=== PATIENT | female | born 1980 | race Caucasian/White ===

== ENCOUNTER 2017-11-23 09:08 | Emergency (ER) | payer MEDICAID ==
[2017-11-23 09:14] VITALS: BP 150/87
--- NOTE | 2017-11-23 09:21 | ER Document Report ---
ED Medical Screen (RME) - General Chief Complaint: Vag Bleeding, +preg <12wks Stated Complaint: VAGINAL BLEEDING Time Seen by Provider: 11/23/17 09:17 Notes: Patient is a 37-year-old female, presents with vaginal bleeding and passing the fetus this morning. She was 8 weeks . She was treated for subchorionic bleed with RhoGam 2 weeks ago because her blood type is B-. Feeling slightly lightheaded and still bleeding, but this decreased. Pt is on vacation. PE: RRR. Lungs CTAb. No acute distress. I have greeted and performed a rapid initial assessment of this patient. A comprehensive ED assessment and evaluation of the patient, analysis of test results and completion of the medical decision making process will be conducted by additional ED providers. TRAVEL OUTSIDE OF THE [place] IN LAST 30 DAYS: No - Related Data Allergies/Adverse Reactions: naloxone Allergy (Verified 11/23/17 09:19) Past Medical History - General Last Menstrual Period: 09/08/2017 - Social History Chew tobacco use (# tins/day): No Frequency of alcohol use: None Drug Abuse: Marijuana, Other Renal/ Medical History: Denies: Hx Peritoneal Dialysis Physical Exam - Vital signs Vitals: Temp Pulse Resp BP Pulse Ox 98.3 F 83 20 150/87 H 98 11/23/17 09:13 11/23/17 09:13 11/23/17 09:13 11/23/17 09:13 11/23/17 09:13 Course - Vital Signs Vital signs: Temp Pulse Resp BP Pulse Ox 98.3 F 83 20 150/87 H 98 11/23/17 09:13 11/23/17 09:13 11/23/17 09:13 11/23/17 09:13 11/23/17 09:13
--- NOTE | 2017-11-23 09:33 | ER Document Report ---
ED General - General Chief Complaint: Vag Bleeding, +preg <12wks Stated Complaint: VAGINAL BLEEDING Time Seen by Provider: 11/23/17 09:17 TRAVEL OUTSIDE OF THE [place] IN LAST 30 DAYS: No - HPI Patient complains to provider of: Vaginal bleeding Notes: 37-year-old female presents with what she thinks is completed miscarriage. Patient believes 8 or 9 weeks scheduled to see her OB/ PRODUCT DELIVERY SPECIALIST on Tuesday. Presents of the passing clots this morning appears to be products of conception. Patient initially had some abdominal pain but is now resolved. Pain was 8/10 sharp in nature without radiation nothing made the pain better or worse. Patient at this time is symptom-free. - Related Data Allergies/Adverse Reactions: naloxone Allergy (Verified 11/23/17 09:19) Past Medical History - General Last Menstrual Period: 09/08/2017 - Social History Smoking Status: Current Every Day Smoker Chew tobacco use (# tins/day): No Frequency of alcohol use: None Drug Abuse: Marijuana, Other Family History: None Patient has suicidal ideation: No Patient has homicidal ideation: No Renal/ Medical History: Denies: Hx Peritoneal Dialysis Review of Systems - Review of Systems Notes: REVIEW OF SYSTEMS: CONSTITUTIONAL: -fevers, -chills EENT: -eye pain, -difficulty swallowing, -nasal congestion CARDIOVASCULAR: -chest pain, -syncope. RESPIRATORY: -cough, -SOB GASTROINTESTINAL: -abdominal pain, -nausea, -vomiting, -diarrhea GENITOURINARY: -dysuria, -hematuria MUSCULOSKELETAL: -back pain, -neck pain SKIN: -rash or skin lesions. HEMATOLOGIC: -easy bruising or bleeding. LYMPHATIC: -swollen, enlarged glands. NEUROLOGICAL: -altered mental status or loss of consciousness, -headache, - neurologic symptoms PSYCHIATRIC: -anxiety, -depression. ALL OTHER SYSTEMS REVIEWED AND NEGATIVE. Physical Exam - Vital signs Vitals: Temp Pulse Resp BP Pulse Ox 98.3 F 83 20 150/87 H 98 11/23/17 09:13 11/23/17 09:13 11/23/17 09:13 11/23/17 09:13 11/23/17 09:13 - Notes Notes: PHYSICAL EXAMINATION: GENERAL: Well-appearing, well-nourished and in no acute distress. HEAD: Atraumatic, normocephalic. EYES: Pupils equal round and reactive to light, extraocular movements intact, sclera anicteric, conjunctiva are normal. ENT: nares patent, oropharynx clear without exudates. Moist mucous membranes. NECK: Normal range of motion, supple without lymphadenopathy LUNGS: Breath sounds clear to auscultation bilaterally and equal. No wheezes rales or rhonchi. HEART: Regular rate and rhythm without murmurs ABDOMEN: Soft, nontender, normoactive bowel sounds. No guarding, no rebound. No masses appreciated. EXTREMITIES: Normal range of motion, no pitting or edema. No cyanosis. NEUROLOGICAL: Cranial nerves grossly intact. Normal speech, normal gait. Normal sensory and motor exams. PSYCH: Normal mood, normal affect. SKIN: Warm, Dry, normal turgor, no rashes or lesions noted. Course - Re-evaluation Re-evalutation: 11/23/17 09:40 Unfortunate young female presents with apparent miscarriage. Patient very tearful she has a history of multiple miscarriages in the past. Her new is bedside they are trying to get . At this time patient just wants to "get out of here". Patient requesting no additional workup and his discharge. Reassuring physical exam. Stable vital signs within normal limits. Patient be discharged home with close follow-up at her BUSINESS INTELLIGENCE DEVELOPER. - Vital Signs Vital signs: Temp Pulse Resp BP Pulse Ox 98.3 F 83 20 150/87 H 98 11/23/17 09:13 11/23/17 09:13 11/23/17 09:13 11/23/17 09:13 11/23/17 09:13 Discharge - Discharge Clinical Impression: Spontaneous Condition: Stable Disposition: HOME, SELF-CARE Instructions: Miscarriage ([facility]) Additional Instructions: See your BUSINESS INTELLIGENCE DEVELOPER when you get home
== END 2017-11-23 09:41 | disposition home or self-care (01) ==
LOC: ER 09:08
DX: O03.9 Complete or unspecified spontaneous abortion without complication (principal)
CPT/HCPCS: 99283